=== PATIENT | male | born 1945 | race Caucasian/White ===

== ENCOUNTER 2024-03-21 11:31 | Emergency (ER) | payer MEDICARE, OTHER, SELFPAY ==
[2024-03-21 11:39] VITALS: BP 171/95
--- NOTE | 2024-03-21 13:22 | ED.GENMED ---
History of Present Illness
General
Chief Complaint: Anal/Rectal Problem
Source: patient
Exam Limitations: none
Time Seen by Provider: 03/21/24 12:41
Travel History
Have you had any contact with someone who has COVID-19?: No
Do you have any symptoms of coronavirus? Fever > 100 degrees, chills, cough, shortness of breath, sore throat, loss of taste or smell, muscle aches, or headache?: No
History of Present Illness
History of Present Illness:
Patient with a hemorrhoid since 5 days ago. Local [facility] stool softener. Some bleeding today and dripping of blood. No other complaints no fever no unusual drainage no foul-smelling drainage no abdominal pain.
Past History
Past History
ED Past Medical History: GERD
ED Past Surgical History: None
Social History
Tobacco: Non-smoker
Alcohol: None
Drug: None
Personal:
Living: with family
Review of Systems
Review of Systems
All Other Systems: Not applicable
Constitutional: Denies fever or chills
Phy Exam
Physical Exam
Physical Exam:
General: Nontoxic appearing in no distress
Skin: Warm and dry, no rash
Neuro: Alert, nontoxic, grossly nonfocal
Psychiatric: Good eye contact and appropriate
Abdomen: Soft and nontender. Large thrombosed hemorrhoid approximately 3 cm with some mild blood opening towards the tip. No unusual drainage. No surrounding cellulitis
Course
Vital Signs
Initial and Last Documented VS:
Initial Vital Signs
Temp Pulse Resp BP Pulse Ox
98.0 F 91 18 171/95 97
03/21/24 11:39 03/21/24 11:39 03/21/24 11:39 03/21/24 11:39 03/21/24 11:39
Last Documented Vital Signs
Temp Pulse Resp BP Pulse Ox
98.0 F 78 18 162/89 97
03/21/24 11:39 03/21/24 13:43 03/21/24 13:43 03/21/24 13:43 03/21/24 13:43
*Critical Care Note
Total Time (30-74mins, 75-104mins- exclusive of procedures): Not Applicable
Update Note
Update Note:
Procedure: 1% with epi local to the thrombosed hemorrhoid. Incised with clot removal. Bleeding controlled with local packing.
ED Attending Note
-
Portions of this chart may have been created with voice recognition software.� Occasional wrong word or��sound alike� substitutions may have occurred due to the inherent limitations of voice recognition software.
Discharge Plan
Departure
Patient Disposition: Home (Routine Discharge)
Date of Disposition: 03/21/24
Time of Disposition: :24
Patient with high blood pressure during this ER visit?: Yes
Discharge Problem:
Thrombosed hemorrhoid
Instructions: Hemorrhoids (DC), BLOOD PRESSURE
Referrals:
Harry Moura MD [Active] - Next open appointment
Activity Restrictions/Additional Instructions:
Use Anusol HC cream twice a day. This apparently is [id number]
Stool softener as discussed
Watch for signs of secondary infection or severe bleeding
Get rechecked by your primary care physician in 2 to 4 days to make sure it is healing well
Interventions
Interventions:
*Risk Screen - Suicide Last Done: 03/21/24 13:43
*General Assessment Last Done: 03/21/24 13:43
*Neglect/Abuse Screening Last Done: 03/21/24 13:43
ED- Fall Risk Assessment Last Done: 03/21/24 13:45
*ED COVID-19 Vaccine History Last Done: 03/21/24 13:43
*Nursing Disposition Last Done: 03/21/24 13:45
[facility]-Mfcxza-Zgxqlnudbh Assessment Last Done: 03/21/24 13:31
ED-Skin Assessment Last Done: 03/21/24 13:31
Discharge Date and Time
Discharge Date/Time: 03/21/24 13:46
Print Language: LATVIAN
[2024-03-21 13:43] VITALS: BP 162/89
== END 2024-03-21 13:46 | disposition home or self-care (01) ==
LOC: EMR 11:31
PROVIDERS: EMERGENCY PHYSICIAN Emergency Medicine
DX: K64.5 Perianal venous thrombosis (principal); R03.0 Elevated blood-pressure reading, without diagnosis of hypertension; K21.9 Gastro-esophageal reflux disease without esophagitis; Z88.0 Allergy status to penicillin
CPT/HCPCS: 99283; 46083